=== PATIENT | male | born 1955 | race Caucasian/White ===

== ENCOUNTER 2020-04-07 08:40 | Outpatient (CLI) | payer OTHER ==
--- NOTE | 2020-04-07 09:05 | RAD ---
Cervical spine 3 views: 04/07/2020 COMPARISON: None HISTORY: Chronic pain, degenerative disc disease FINDINGS: There is an old displaced midshaft left clavicle fracture. Multilevel bilateral facet and u ncovertebral osteophyte formation, most prominent on the left at C3-4 and C4-5 and on the right at C4-5 and C5-6. Open-mouth odontoid view demonstrates a normal-appearing dens and C1-2 articulation. Lateral exam demonstrates 3-4 mm of C2-3 anterolisthesis. Minimal retrolisthesis at C3-4. Prominent d isc space narrowing with degenerative endplate change and anterior osteophyte formation at C3-4, C4-5, C5-6, and C6-7. No prevertebral soft tissue swelling. IMPRESSION: Prominent multilevel cervical spine degenerative change as above.
== END 2020-04-07 08:41 | disposition home or self-care (01) ==
LOC: MADRAD 08:40
PROVIDERS: ATTEND Orthopaedic Surgery
DX: M51.36 Other intervertebral disc degeneration, lumbar region (principal); M47.816 Spondylosis without myelopathy or radiculopathy, lumbar region
CPT/HCPCS: 72040